=== PATIENT | female | born 1980 | race Caucasian/White ===

== ENCOUNTER 2018-06-09 14:08 | Inpatient (IN) | payer OTHER ==
[~2018-06-09] VITALS: Ht 157.5 cm; Wt 77.1 kg
== END 2018-06-10 09:27 | disposition home or self-care (01) | DRG 833 ==
LOC: OB/GYN 14:08
PROVIDERS: ADMIT Obstetrics & Gynecology Maternal & Fetal Medicine
DX: O00.102 Left tubal pregnancy without intrauterine pregnancy (principal)

== ENCOUNTER 2019-05-11 11:31 | Outpatient (CLI) | payer OTHER | END 2019-05-11 12:23 | disposition home or self-care (01) | LOC: NST 11:31 | DX: O30.092 Twin pregnancy, unable to determine number of placenta and number of amniotic sacs, second trimester (principal) ==

== ENCOUNTER 2019-05-25 08:36 | Outpatient (CLI) | payer OTHER | END 2019-05-25 09:57 | disposition home or self-care (01) | LOC: NST 08:36 | DX: O30.093 Twin pregnancy, unable to determine number of placenta and number of amniotic sacs, third trimester (principal) ==

== ENCOUNTER 2019-06-08 09:20 | Outpatient (CLI) | payer OTHER | END 2019-06-08 11:02 | disposition home or self-care (01) | LOC: NST 09:20 | DX: O30.003 Twin pregnancy, unspecified number of placenta and unspecified number of amniotic sacs, third trimester (principal) ==

== ENCOUNTER 2019-06-15 10:35 | Outpatient (CLI) | payer OTHER | END 2019-06-15 12:10 | disposition home or self-care (01) | LOC: NST 10:35 | DX: Z34.83 Encounter for supervision of other normal pregnancy, third trimester (principal) ==

== ENCOUNTER 2019-06-22 10:01 | Outpatient (CLI) | payer OTHER | END 2019-06-22 10:44 | disposition home or self-care (01) | LOC: NST 10:01 | DX: Z34.83 Encounter for supervision of other normal pregnancy, third trimester (principal) ==

== ENCOUNTER 2019-06-29 10:35 | Outpatient (CLI) | payer OTHER | END 2019-06-29 12:05 | disposition home or self-care (01) | LOC: NST 10:35 | DX: Z34.83 Encounter for supervision of other normal pregnancy, third trimester (principal) ==

== ENCOUNTER 2019-07-03 11:07 | Inpatient (IN) | payer OTHER ==
[~2019-07-03] VITALS: Ht 157.5 cm; Wt 82.6 kg
[2019-07-03] MEDS ORDERED: PRENATAL CAPLE1 EAC1 PO (11:22)
[2019-07-03] MEDS ORDERED: IRON325 MG PO (11:23)
[2019-07-03] MEDS ORDERED: ASPIR 8181 MG PO (11:23)
== END 2019-07-05 10:16 | disposition home or self-care (01) | DRG 833 ==
LOC: OB/GYN 11:07 → LDR 11:07 → OB/GYN 07-04 08:16
PROVIDERS: ADMIT Obstetrics & Gynecology Maternal & Fetal Medicine
PROC: 4A1HXFZ Monitoring of Products of Conception, Cardiac Rhythm, External Approach (ICD-10-PCS; principal; 2019-07-03)
DX: O60.03 Preterm labor without delivery, third trimester (principal); Z3A.33 33 weeks gestation of pregnancy; O30.043 Twin pregnancy, dichorionic/diamniotic, third trimester

== ENCOUNTER 2019-07-06 09:55 | Outpatient (CLI) | payer OTHER ==
[~2019-07-06 09:55] MED LIST: ASPIR 8181 MG PO; IRON325 MG PO; PRENATAL CAPLE1 EAC1 PO
== END 2019-07-06 10:54 | disposition home or self-care (01) ==
LOC: NST 09:55
DX: O30.093 Twin pregnancy, unable to determine number of placenta and number of amniotic sacs, third trimester (principal)

== ENCOUNTER 2019-07-08 09:54 | Outpatient (CLI) | payer OTHER | END 2019-07-08 10:42 | disposition home or self-care (01) | LOC: NST 09:54 | DX: Z34.83 Encounter for supervision of other normal pregnancy, third trimester (principal) ==

== ENCOUNTER 2019-07-11 10:47 | Outpatient (CLI) | payer OTHER | END 2019-07-11 11:37 | disposition home or self-care (01) | LOC: NST 10:47 | DX: Z34.83 Encounter for supervision of other normal pregnancy, third trimester (principal) ==

== ENCOUNTER 2019-07-14 10:00 | Outpatient (CLI) | payer OTHER | END 2019-07-14 11:02 | disposition home or self-care (01) | LOC: NST 10:00 | DX: Z34.83 Encounter for supervision of other normal pregnancy, third trimester (principal) ==

== ENCOUNTER 2019-07-18 09:45 | Outpatient (CLI) | payer OTHER | END 2019-07-18 10:27 | disposition home or self-care (01) | LOC: NST 09:45 | DX: Z34.83 Encounter for supervision of other normal pregnancy, third trimester (principal) ==

== ENCOUNTER 2019-07-18 14:20 | Inpatient (IN) | payer OTHER ==
[~2019-07-18] VITALS: Ht 157.5 cm; Wt 1.8 kg
[2019-07-21] MEDS ORDERED: CHILDREN'S ASPI81 MG PO (09:00)
[2019-07-23] MEDS ORDERED: OXYC1TAB9 PO (09:27)
[2019-07-23] MEDS ORDERED: KETO10TA2 PO (09:27)
== END 2019-07-23 15:28 | disposition home or self-care (01) | DRG 788 ==
LOC: O/R 07-20 07:02 → OB/GYN 07-20 08:15
PROVIDERS: ADMIT Obstetrics & Gynecology Maternal & Fetal Medicine
PROC: 0DNW0ZZ Release Peritoneum, Open Approach (ICD-10-PCS; 2019-07-20)
PROC: 4A1HXCZ Monitoring of Products of Conception, Cardiac Rate, External Approach (ICD-10-PCS; 2019-07-20)
PROC: 10D00Z1 Extraction of Products of Conception, Low, Open Approach (ICD-10-PCS; principal; 2019-07-20 08:15)
DX: O32.2XX2 Maternal care for transverse and oblique lie, fetus 2 (principal); O99.62 Diseases of the digestive system complicating childbirth; O30.043 Twin pregnancy, dichorionic/diamniotic, third trimester; K66.0 Peritoneal adhesions (postprocedural) (postinfection); Z3A.36 36 weeks gestation of pregnancy; Z37.2 Twins, both liveborn

== ENCOUNTER 2024-03-04 08:50 | Outpatient (CLI) | payer OTHER ==
[~2024-03-04 08:50] MED LIST changes: +CHILDREN'S ASPI81 MG PO; +KETO10TA2 PO; +OXYC1TAB9 PO
== END 2024-03-04 09:12 | disposition home or self-care (01) ==
LOC: MAMO-SONO 08:50
PROVIDERS: ATTEND Surgery
DX: N60.11 Diffuse cystic mastopathy of right breast (principal)